=== PATIENT | male | born 1940 | race Caucasian/White ===

== ENCOUNTER 2017-01-02 14:05 | Emergency (ER) | payer OTHER, BC ==
[2017-01-02 14:13] VITALS: TEMP 97.3; BMI 27.8
--- NOTE | 2017-01-02 14:17 | PDOC ---
History of Present Illness - History of Present Illness Initial Comments: 01/02/17 15:32 Patient is a 76 year old male with significant medical hx of COPD, HTN, and HLD who has been sent to the ED for increasing shortness of breath over the past week. The patient reports he's had difficulty breathing with some cough over the past few months. He went through several treatments of antibiotics and steroids with some relief of his symptoms. The patient saw his production underwriter who requested that the patient retrieve the results of a chest CT he had back in 06/2016. Patient states that he was found to have PE and picked up his prescription for Xeralto today. The patient reports his breathing is okay right now but notes that it will worsen with exertion. The patient reports improvement with his cough and states that it is dry and less frequent. He was sent to the ED by PMD for further evaluation. The patient is scheduled to return to [place] in two days and has a cruise planned. Denies calf tenderness, lower extremity swelling, chest pain, fever, chills, hx of blood clots, and hx of cancer. Hanger: Chuy Rueda MD Allergies: Sulfur <Kiki Dong - Last Filed: 01/02/17 15:31> - General History Source: Patient, Old Records Exam Limitations: No Limitations <Katerina Thompson - Last Filed: 01/02/17 18:14> - General Chief Complaint: Shortness of Breath Stated Complaint: PCP SENT, LAB WORK, r/o PE Time Seen by Provider: 01/02/17 14:13 Past History <Kiki Dong - Last Filed: 01/02/17 15:31> - Past Medical History COPD: Yes HTN: Yes Hypercholesterolemia: Yes - Psycho/Social/Smoking Cessation Hx Suicidal Ideation: No Smoking History: Former smoker Have you smoked in the past 12 months: No If you are a former smoker, when did you quit?: 2006 Information on smoking cessation initiated: Yes 'Breaking Loose' booklet given: 01/02/17 Hx Alcohol Use: No Drug/Substance Use Hx: No Substance Use Type: None <Katerina Thompson - Last Filed: 01/02/17 18:14> - Past Medical History Allergies/Adverse Reactions: Allergies Allergy/AdvReac Type Severity Reaction Status Date / Time Sulfa (Sulfonamide Allergy Verified 01/02/17 14:14 Antibiotics) Home Medications: Ambulatory Orders Ascorbate Calcium [Vitamin C] 1,000 mg PO DAILY 01/02/17 Aspirin [ASA -] 81 mg PO DAILY 01/02/17 Atorvastatin Calcium [Lipitor] 10 mg PO DAILY 01/02/17 Candesartan Cilexetil [Atacand -] 16 mg PO DAILY 01/02/17 Cholecalciferol (Vitamin D3) [Vitamin D3 -] 400 unit PO ASDIR 01/02/17 Folic Acid - 1 mg PO ASDIR 01/02/17 Mometasone/Formoterol [Dulera 200 Mcg/5 Mcg Inhaler] 2 inh IH BID 01/02/17 Multivit-Min/FA/Lycopen/Lutein [Centrum Silver Tablet] 1 each PO DAILY 01/02/17 Prednisone [Deltasone -] 10 mg PO DAILY 01/02/17 Psyllium Husk [Fiber] 0.52 gm PO TID 01/02/17 Ranitidine [Zantac -] 150 mg PO BID 01/02/17 Rivaroxaban [Xarelto -] 0 mg PO DAILY 01/02/17 Tiotropium Mina [Spiriva] 215 mcg IH ASDIR 01/02/17 Vitamin E - 400 unit PO ASDIR 01/02/17 Review of Systems - Review of Systems Comments:: 01/02/17 15:43 GENERAL/CONSTITUTIONAL: No fever or chills. No weakness. HEAD, EYES, EARS, NOSE AND THROAT: No change in vision. No ear pain or discharge. No sore throat. CARDIOVASCULAR: Shortness of breath. No chest pain. RESPIRATORY: Dry cough. No wheezing or hemoptysis. GASTROINTESTINAL: No nausea, vomiting, diarrhea or constipation. GENITOURINARY: No dysuria, frequency, or change in urination. MUSCULOSKELETAL: No joint or muscle swelling or pain. No neck or back pain. SKIN: No rash NEUROLOGIC: No headache, vertigo, loss of consciousness, or change in strength/ sensation. <Kiki Dong - Last Filed: 01/02/17 15:31> *Physical Exam - Vital Signs Last Vital Signs Temp Pulse Resp BP Pulse Ox 97.3 F L 84 17 148/88 95 01/02/17 14:09 01/02/17 14:09 01/02/17 14:09 01/02/17 14:09 01/02/17 14:09 - Physical Exam Comments: 01/02/17 15:44 GENERAL: Awake, alert, and fully oriented, in no acute distress HEAD: No signs of trauma EYES: PERRLA, EOMI, sclera anicteric, conjunctiva clear ENT: Auricles normal inspection, hearing grossly normal, nares patent, oropharynx clear without exudates. Moist mucosa NECK: Normal ROM, supple, no lymphadenopathy, JVD, or masses LUNGS: Distant breath sounds in all lung more. No wheezes, and no crackles HEART: Regular rate and rhythm, normal S1 and S2, no murmurs, rubs or gallops ABDOMEN: Soft, nontender, normoactive bowel sounds. No guarding, no rebound. No masses EXTREMITIES: Normal range of motion, no edema. No clubbing or cyanosis. No cords, erythema, or tenderness NEUROLOGICAL: Cranial nerves II through XII grossly intact. Normal speech, normal gait SKIN: Warm, Dry, normal turgor, no rashes or lesions noted. ENDOCRINE: No abnormal weight change. HEMATOLOGIC/LYMPHATIC: No anemia, easy bleeding, or history of blood clots. ALLERGIC/IMMUNOLOGIC: No hives or skin allergy. <Kiki Dong - Last Filed: 01/02/17 15:31> - Vital Signs Last Vital Signs Temp Pulse Resp BP Pulse Ox 97.3 F L 84 17 148/88 95 01/02/17 14:09 01/02/17 14:09 01/02/17 14:09 01/02/17 14:09 01/02/17 14:09 <Katerina Thompson - Last Filed: 01/02/17 18:14> Heart Score/ECG Review #1 01/02/17 15:47 Normal sinus rhythm at 68 bpm Normal ECG <Kiki Dong - Last Filed: 01/02/17 15:31> ED Treatment Course - LABORATORY CBC & Chemistry Diagram: 01/02/17 14:26 01/02/17 14:26 - ADDITIONAL ORDERS Additional order review: Laboratory Results 01/02/17 01/02/17 01/02/17 14:29 14:29 14:26 INR PTT (Actin FS) D-Dimer 272 H Sodium 142 Potassium 4.1 Chloride 105 Carbon Dioxide 23 Anion Gap 14 BUN 33 H Creatinine 1.2 Creat Clearance w eGFR 59.18 Random Glucose 83 Calcium 9.3 Total Bilirubin 0.6 AST 23 ALT 36 Alkaline Phosphatase 78 Creatine Kinase 32 L Troponin I < 0.02 B-Natriuretic Peptide 193.28 H Total Protein 7.5 Albumin 3.6 01/02/17 14:26 INR 0.96 PTT (Actin FS) 26.1 L D-Dimer Sodium Potassium Chloride Carbon Dioxide Anion Gap BUN Creatinine Creat Clearance w eGFR Random Glucose Calcium Total Bilirubin AST ALT Alkaline Phosphatase Creatine Kinase Troponin I B-Natriuretic Peptide Total Protein Albumin 01/02/17 14:26 RBC 4.52 MCV 102.6 H MCHC 33.8 RDW 14.3 MPV 7.5 Neutrophils % 63.2 Lymphocytes % 24.1 Monocytes % 11.3 H Eosinophils % 0.8 Basophils % 0.6 - RADIOLOGY Radiograph Interpretation: 01/02/17 15:45 Chest X-Ray Impression: No acute pathology. Minimal pleural reaction and atelectasis right base. Scoliosis with degenerative changes and wedges. Normal heart. No sign of infiltrate or failure. Reported By: Julio Ortiz MD <Kiki Dong - Last Filed: 01/02/17 15:31> - LABORATORY CBC & Chemistry Diagram: 01/02/17 14:26 01/02/17 14:26 <Katerina Thompson - Last Filed: 01/02/17 18:14> Medical Decision Making - Medical Decision Making 01/02/17 14:59 76-year-old male with history of COPD, hypertension who presents to the emergency department as a referral from his primary care physician for evaluation of shortness of breath and pulmonary embolism on CT scan performed in June 2016. Differential diagnosis includes but is not limited to: Pneumonia , influenza, pulmonary embolism, COPD exacerbation, CHF. Plan: 1. Labs 2. Influenza swab 3. Chest x-ray 4. CT angiogram of the chest 5. Observe and reevaluate 01/02/17 17:53 Addendum: CT angiography scan of the chest in the primary branch of the right pulmonary artery (probably residual given his past history. I have discussed the case with both radiology and with Dr. Rueda, the patient's primary care physician. Since the patient clinically looks well and the PE is likely chronic , I will discharge him home and I have reinforced the need to start Xarelto today. The patient tells me that he picked up the prescription this afternoon prior to coming to the emergency department. Dr. Rueda is to call the patient tomorrow to discuss the risks and consequences of leaving on his vacation to the [facility] next week. I have advised the patient to return to the emergency department should he become more short of breath, had chest pain or any other symptoms. <Katerina Thompson - Last Filed: 01/02/17 18:14> *DC/Admit/Observation/Transfer - Attestations Scribe Attestion: 01/02/17 15:47 Documentation prepared by Kiki Dong, acting as biomedical field service engineer for Katerina Thompson MD. <Kiki Dong - Last Filed: 01/02/17 15:31> - Discharge Dispostion Admit: No - Attestations Physician Attestion: 01/02/17 15:00 I, Dr. Katerina Thompson, attest that the scribes documentation that appears above has been prepared under my direction and personally reviewed by me in its entirety. I confirmed that the note above accurately reflects all work, treatment, procedures, and medical decision-making performed by me. <Katerina Thompson - Last Filed: 01/02/17 18:14> Diagnosis at time of Disposition: Shortness of breath, Pulmonary embolism Diagnosis at time of Disposition: (Ruled Out): Pulmonary air embolism - Discharge Dispostion Disposition: HOME Condition at time of disposition: Stable - Patient Instructions Printed Discharge Instructions: DI for Pulmonary Embolism Additional Instructions: Start the Xarelto today as prescribed by Dr. Rueda. Please return to the Emergency Department if you feel more shortness of breath, chest pain or any other symptoms.
[2017-01-02 14:37] LABS: BASOPHIL 0.6 % (0-2.0); EOSINOPHIL 0.8 % (0-4.5); MCH 34.7 pg (25.7-33.7); MCHC 33.8 g/dl (32.0-35.9); MEAN CELL VOLUME 102.6 fl (80-96); MEAN PLT VOLUME 7.5 fl (7.5-11.1); NEUTROPHILS 63.2 % (42.8-82.8); PLATELET COUNT 190 K/MM3 (134-434); RDW 14.3 % (11.9-15.9); WHITE BLOOD COUNT 9.8 K/mm3 (4.0-10.0)
[2017-01-02 15:02] LABS: INR 0.96 (0.82-1.09); PROTHROMBIN TIME (PATIENT) 10.6 SEC (9.98-11.88)
[2017-01-02 15:05] LABS: ACTIVATED PTT 26.1 SECONDS (26.9-34.4)
[2017-01-02 15:15] LABS: ALBUMIN 3.6 g/dl (3.4-5.0); ANION GAP 14 (8-16); BILIRUBIN,TOTAL 0.6 mg/dL (0.2-1.0); CALCIUM 9.3 mg/dL (8.5-10.1); CO2 23 mmol/L (21-32); CREATININE 1.2 mg/dL (0.7-1.3); GLUCOSE,RANDOM 83 mg/dL (74-106); SGOT/AST 23 U/L (15-37); SGPT/ALT 36 U/L (12-78); TOT PROT 7.5 g/dl (6.4-8.2)
[2017-01-02 15:18] LABS: ALK PHOS 78 U/L (45-117); TROPONIN I < 0.02 ng/ml (0.00-0.05)
[2017-01-02 16:18] LABS: URINE APPEARANCE CLEAR; URINE BILIRUBIN NEGATIVE (NEGATIVE); URINE BLOOD NEGATIVE (NEGATIVE); URINE COLOR DKYELLOW; URINE GLUCOSE (UA) NEGATIVE (NEGATIVE); URINE KETONE TRACE (NEGATIVE); URINE LEUK ESTERASE NEGATIVE (NEGATIVE); URINE NITRITE NEGATIVE (NEGATIVE); URINE PROTEIN NEGATIVE (NEGATIVE); URINE UROBILINOGEN 2.0 E.U/dl E.U./dl (0.2-1.0)
--- NOTE | 2017-01-02 16:51 | EKG ---
Test Reason : Blood Pressure : / mmHG Vent. Rate : 068 BPM Atrial Rate : 068 BPM P-R Int : 174 ms QRS Dur : 072 ms QT Int : 380 ms P-R-T Axes : 050 013 034 degrees QTc Int : 404 ms NORMAL SINUS RHYTHM NORMAL ECG NO PREVIOUS ECGS AVAILABLE Confirmed by DENI PINTO MD ([id number]) on 01/02/2017 4:51:01 PM Referred By: Confirmed By:DENI PINTO MD
[2017-01-02 18:30] VITALS: BP 146/91; PULSE 71
== END 2017-01-02 18:30 | disposition home or self-care (01) ==
LOC: JER 14:05
DX: I27.82 Chronic pulmonary embolism (principal); Z79.01 Long term (current) use of anticoagulants; J44.9 Chronic obstructive pulmonary disease, unspecified; I10 Essential (primary) hypertension; Z87.891 Personal history of nicotine dependence
CPT/HCPCS: 36415; 71020-TC; 71275-TC; 80053; 81003; 82550; 83880; 84484; 85025; 85379; 85610; 85730; 87804; 93005; 93010; 99283-25